=== PATIENT | female | born 1955 | race Caucasian/White ===

== ENCOUNTER 2024-02-01 21:29 | Emergency (ER) | payer MEDICARE ==
[2024-02-01] MEDS ORDERED: Sodium Chloride 0.9% 10 ML Syringe FLUSH PRN (21:30)
[2024-02-01 21:36] LABS: BASOPHILS PERCENT AUTO 0.3 % (0.2-1.2); EOSINOPHILS ABSOLUTE AUTO 0.2 x10^3/uL (0.0-0.5); EOSINOPHILS PERCENT AUTO 2.5 % (0.0-4.0); HEMATOCRIT 44.3 % (33.0-47.0); HEMOGLOBIN 15.2 g/dL (12.0-16.0); IMMATURE GRAN ABSOLUTE AUTO 0.01 x10^3/uL (0.00-0.07); LYMPHOCYTES ABSOLUTE AUTO 1.5 x10^3/uL (1.0-4.8); LYMPHOCYTES PERCENT AUTO 24.1 % (25.0-50.0); MEAN CORPUSCULAR HEMOGLOBIN 29.2 pg (26.0-32.0); MEAN CORPUSCULAR HGB CONC 34.3 g/dL (32.0-36.0); MEAN CORPUSCULAR VOLUME 85.2 fL (78.0-93.0); MONOCYTES ABSOLUTE AUTO 0.5 x10^3/uL (0.0-0.8); MONOCYTES PERCENT AUTO 8.1 % (2.0-11.0); NEUTROPHILS ABSOLUTE AUTO 4.1 x10^3/uL (1.8-7.7); NEUTROPHILS PERCENT AUTO 64.8 % (50.0-80.0); PLATELET COUNT,PLT 205 x10^3/uL (130-400); WHITE BLOOD CELL COUNT,WBC 6.3 x10^3/uL (4.0-10.0)
[2024-02-01] MEDS ORDERED: Metoprolol Tartrate 5 MG/5 ML SDV ONE (22:05)
[2024-02-01] MEDS: Metoprolol Tartrate 5 MG/5 ML SDV IVPUSH ONE (22:09)
[2024-02-01 22:26] LABS: A/G RATIO 1.11; ANION GAP 16.4 mmol/L (5-15); BILIRUBIN TOTAL 0.4 mg/dL (0.2-1.0); CALCIUM 8.9 mg/dL (8.5-10.1); CREATININE 0.9 mg/dL (0.55-1.02); EST CRCL DRUG DOSING (CG) 62.03 mL/min; POTASSIUM,K 3.4 mmol/L (3.5-5.1); PROTEIN TOTAL,TP 7.6 g/dL (6.4-8.2); TSH ULTRASENSITIVE 2.704 uIU/mL (0.358-3.74)
[2024-02-01] MEDS ORDERED: Metoprolol Succinate 50 MG Tab.ER PO ONE (23:05)
[2024-02-01 23:08] VITALS: BP 143/84
[2024-02-01] MEDS: Metoprolol Succinate 25 MG Tab.ER PO ONE ×2 (23:08→23:16)
[2024-02-01 23:17] VITALS: PULSE 82
[2024-02-01] MEDS: Adenosine 6 MG/2 ML SDV ONE (23:22)
== END 2024-02-01 23:24 | disposition home or self-care (01) ==
LOC: VM.ED 21:29
DX: I47.11 Inappropriate sinus tachycardia, so stated (principal); I11.0 Hypertensive heart disease with heart failure; I50.9 Heart failure, unspecified; I25.10 Atherosclerotic heart disease of native coronary artery without angina pectoris; E78.00 Pure hypercholesterolemia, unspecified; E11.9 Type 2 diabetes mellitus without complications; K21.9 Gastro-esophageal reflux disease without esophagitis; Z90.49 Acquired absence of other specified parts of digestive tract; Z88.5 Allergy status to narcotic agent; Z88.0 Allergy status to penicillin; Z88.6 Allergy status to analgesic agent; Z79.84 Long term (current) use of oral hypoglycemic drugs; Z79.899 Other long term (current) drug therapy; Z90.710 Acquired absence of both cervix and uterus
CPT/HCPCS: 71045; 80053; 84443; 84484; 85025; 96374; 99285; A9270; J0153; J3490; 93005; 93010; 99284

== ENCOUNTER 2024-11-19 15:22 | Emergency (ER) | payer MEDICARE ==
[2024-11-19] MEDS: Acetaminophen 325 MG Tab PO ONE (15:51)
[2024-11-19] MEDS: Lactated Ringers 1,000 ML IV SCH (15:53)
[2024-11-19 16:02] LABS: HEMATOCRIT 43.1 % (33.0-47.0); HEMOGLOBIN 14.6 g/dL (12.0-16.0); MEAN CORPUSCULAR HEMOGLOBIN 28.9 pg (26.0-32.0); MEAN CORPUSCULAR HGB CONC 33.9 g/dL (32.0-36.0); MEAN CORPUSCULAR VOLUME 85.3 fL (78.0-93.0); PLATELET COUNT,PLT 168 x10^3/uL (130-400); RED BLOOD CELL COUNT 5.05 x10^6/uL (4.00-5.50); WHITE BLOOD CELL COUNT,WBC 4.3 x10^3/uL (4.0-10.0)
[2024-11-19 16:28] LABS: A/G RATIO 1.09; ALBUMIN 3.8 g/dL (3.4-5.0); BILIRUBIN TOTAL 0.8 mg/dL (0.2-1.0); CALCIUM 9.4 mg/dL (8.5-10.1); EST CRCL DRUG DOSING (CG) 57.05 mL/min; MAGNESIUM 1.4 mg/dL (1.8-2.4); POTASSIUM,K 3.7 mmol/L (3.5-5.1); PROTEIN TOTAL,TP 7.3 g/dL (6.4-8.2)
[2024-11-19 16:34] LABS: ANION GAP 15.7 mmol/L (5-15)
[2024-11-19 16:41] LABS: APPEARANCE,URINE CLEAR (CLEAR); COLOR,URINE YELLOW (YELLOW); PH,URINE 5.5 (5.0-8.0)
[2024-11-19 16:42] LABS: GLUCOSE,URINE 500 mg/dL (NEGATIVE); PROTEIN,URINE 100 mg/dL (NEGATIVE)
[2024-11-19 16:43] LABS: BILIRUBIN,URINE NEGATIVE (NEGATIVE); KETONES,URINE NEGATIVE (NEGATIVE); LEUKOCYTE ESTERASE,URINE NEGATIVE (NEGATIVE); NITRITE,URINE POSITIVE (NEGATIVE); OCCULT BLOOD,URINE LARGE (NEGATIVE); UROBILINOGEN,URINE 0.2 EU/dL (0.2)
[2024-11-19] MEDS ORDERED: Lactated Ringers 1,000 ML IV SCH (16:45)
[2024-11-19] MEDS: Sodium Chloride 0.9% 1,000 ML IV ONE (16:51)
[2024-11-19] MEDS: Ibuprofen 200 MG Tab PO STA (16:52)
[2024-11-19] MEDS: cefTRIAXone 2 GM Vial IVPUSH ONE (16:52)
[2024-11-19 16:53] LABS: BACTERIA,URINE MANY /HPF (NOT SEEN); RBC,URINE 50-75 /HPF (NOT SEEN); SQUAMOUS EPITHELIAL CELLS,UR FEW /HPF (NOT SEEN); WBC,URINE 0-5 /HPF (NOT SEEN)
[2024-11-19 17:07] LABS: EOSINOPHILS ABSOLUTE MAN 0.1 x10^3/uL (0.0-0.5); EOSINOPHILS PERCENT MAN 2 % (0-4); LYMPHOCYTES ABSOLUTE MAN 0.2 x10^3/uL (1.0-4.8); LYMPHOCYTES PERCENT MAN 4 % (25-50); SEG NEUTROPHILS PERCENT MAN 94 % (50-80)
[2024-11-19 17:09] LABS: ANISOCYTOSIS NOT SEEN; POIKILOCYTOSIS RARE; POLYCHROMASIA NOT SEEN; SCHISTOCYTES NOT SEEN
[2024-11-19 17:10] LABS: HYPOCHROMASIA NOT SEEN; OVALOCYTES RARE; PLATELET COUNT ESTIMATE ADEQUATE
[2024-11-19 17:16] LABS: AMORPHOUS SEDIMENT,URINE NOT SEEN; MUCUS,URINE NOT SEEN /LPF (NOT SEEN); RENAL EPITHELIAL CELLS,URINE NOT SEEN /HPF (NOT SEEN)
[2024-11-19 17:17] LABS: CALCIUM CARBONATE CRYSTALS,UR NOT SEEN; CALCIUM OXALATE CRYSTALS,URINE NOT SEEN /HPF (NOT SEEN); CALCIUM PHOSPHATE CRYSTALS,UR NOT SEEN; CYSTINE CRYSTALS,URINE NOT SEEN; LEUCINE CRYSTALS,URINE NOT SEEN; OTHER CRYSTALS,URINE NOT SEEN; TRICHOMONAS,URINE NOT SEEN /HPF (NONE - FEW); TRIPLE PHOSPHATE CRYSTALS,UR NOT SEEN /HPF (NOT SEEN); TYROSINE CRYSTAL,URINE NOT SEEN; URIC ACID CRYSTALS,URINE NOT SEEN /HPF (NOT SEEN); YEAST BUDDING,URINE NOT SEEN /HPF (NONE - FEW); YEAST HYPHAE,URINE NOT SEEN /HPF (NONE - FEW)
[2024-11-19 17:18] LABS: BROAD HYALINE CASTS,URINE NOT SEEN; EPITHELIAL CASTS,URINE NOT SEEN; GRANULAR CASTS,URINE NOT SEEN; HYALINE CASTS,URINE NOT SEEN; RBC CASTS,URINE NOT SEEN /HPF (NOT SEEN); WAXY CASTS,URINE NOT SEEN /HPF (NOT SEEN); WBC CASTS,URINE NOT SEEN /HPF (NOT SEEN)
[2024-11-19 18:44] VITALS: PULSE 92
[2024-11-19 20:01] VITALS: BP 166/64
== END 2024-11-19 19:55 | disposition home or self-care (01) ==
LOC: VM.ED 15:22
DX: A41.9 Sepsis, unspecified organism (principal); N30.00 Acute cystitis without hematuria; I11.0 Hypertensive heart disease with heart failure; I50.9 Heart failure, unspecified; E78.00 Pure hypercholesterolemia, unspecified; E11.9 Type 2 diabetes mellitus without complications; Z88.5 Allergy status to narcotic agent; Z88.1 Allergy status to other antibiotic agents; Z79.82 Long term (current) use of aspirin; Z79.899 Other long term (current) drug therapy; Z79.02 Long term (current) use of antithrombotics/antiplatelets; Z79.84 Long term (current) use of oral hypoglycemic drugs; Z90.49 Acquired absence of other specified parts of digestive tract; Z90.710 Acquired absence of both cervix and uterus
CPT/HCPCS: 71045; 80053; 81001; 83605; 83735; 85025; 87040; 87428; 96361; 96374; 99284; A9270; J0696; J7030; J7120; 36415